=== PATIENT | female | born 1940 | race Two or more races ===

== ENCOUNTER → 2016-07-30 | Outpatient (CLI) | payer OTHER ==
[~2016-07-30] MED LIST: CRESTOR PO; FOLI1TAB15 PO; OMEP20CA10 PO
== END | disposition home or self-care (01) ==
LOC: RADPV 11:55
PROVIDERS: ATTEND Family Medicine
DX: M17.0 Bilateral primary osteoarthritis of knee (principal)

== ENCOUNTER → 2016-10-27 | Outpatient (CLI) | payer OTHER | END | disposition home or self-care (01) | LOC: RADPV 12:23 | PROVIDERS: ATTEND Internal Medicine Nephrology | DX: N18.3 Chronic kidney disease, stage 3 (moderate) (principal) | CPT/HCPCS: 76770 ==

== ENCOUNTER 2018-08-28 11:50 | Emergency (ER) | payer OTHER, MEDICAID ==
[~2018-08-28] VITALS: Ht 154.9 cm; Wt 68.2 kg
[2018-08-28 14:35] LABS: BASOPHILS % (AUTO) 0.3 % (0.0-2.0); EOSINOPHILS % (AUTO) 0.3 % (1.0-6.0); HEMATOCRIT 34.7 % (36-46); HEMOGLOBIN 11.1 g/dL (12.0-16.0); LYMPHOCYTES # (AUTO) 1.1 K/uL (1.0-4.8); LYMPHOCYTES % (AUTO) 8.9 % (22.0-44.0); MEAN CORPUSCULAR HEMOGLOBIN 24.5 pg (26.0-34.0); MEAN CORPUSCULAR HGB CONC 32.1 G/dL (31.0-37.0); MEAN CORPUSCULAR VOLUME 76 fL (80-100); MONOCYTES # (AUTO) 1.2 K/uL (0.1-1.0); MONOCYTES % (AUTO) 9.8 % (2.0-9.0); NEUTROPHILS # (AUTO) 9.8 K/uL (1.8-7.7); NEUTROPHILS % (AUTO) 80.7 % (40.0-70.0); PLATELET COUNT (AUTO) 280 K/uL (150-450); RED BLOOD CELL COUNT(AUTO) 4.54 MIL/uL (4.00-5.20); RED CELL DISTRIBUTION WIDTH 16.5 % (11.5-14.5)
[2018-08-28 14:44] LABS: ANION GAP 9 mmol/L (8-16); CALCIUM, TOTAL 9.7 mg/dL (8.8-10.5); CARBON DIOXIDE 27 mmol/L (22-29); CHLORIDE 101 mmol/L (98-107); CREATININE 0.84 mg/dL (0.60-1.30); GLUCOSE,RANDOM 103 mg/dL (70-110); POTASSIUM 4.6 mmol/L (3.5-5.1); SODIUM SERUM 137 mmol/L (136-145); UREA NITROGEN, BLOOD 8 mg/dL (7-18)
[2018-08-28 14:46] LABS: GLOMERULAR FILTR. RATE CALC > 60 mL/min (>60)
[2018-08-28 14:48] LABS: INR 0.9 (0.9-1.1); PROTHROMBIN TIME 9.6 SEC (9.4-11.6)
[2018-08-28 14:50] LABS: ALANINE AMINOTRANSFERASE 20 U/L (12-78); ALBUMIN 3.4 g/dL (3.4-5.0); ALKALINE PHOSPHATASE 74 U/L (46-116); ASPARTATE AMINOTRANSFERASE 15 U/L (15-37); BILIRUBIN,TOTAL 0.6 mg/dL (0.1-1.0); LIPASE 90 U/L (73-393); TOTAL PROTEIN, SERUM 7.6 g/dL (6.4-8.2)
[2018-08-28 15:47] LABS: APPEARANCE,URINE CLOUDY (CLEAR); BILIRUBIN,URINE NEGATIVE (NEGATIVE); GLUCOSE, URINE (UA) NEGATIVE (NEGATIVE); KETONES,URINE 15 mg/dL (NEGATIVE); LEUKOCYTE ESTERASE ,URINE SMALL (NEGATIVE); NITRATE,URINE NEGATIVE (NEGATIVE); OCCULT BLOOD,URINE NEGATIVE (NEGATIVE); PH,URINE 6.5 (5.0-8.0); PROTEIN,URINE NEGATIVE (NEGATIVE); UROBILINOGEN,URINE 0.2 mg/dL (<=1.0)
[2018-08-28 16:06] LABS: BACTERIA,URINE Few /HPF (None Seen); RBC,URINE 0-2 /HPF (0-2); SQUAMOUS EPITHELIAL CELL,UR Moderate /LPF (None Seen)
[2018-08-28 16:07] LABS: MUCUS,URINE Few LPF (None Seen)
[2018-08-28] MEDS ORDERED: SODIUM CHLORIDE 0.9% 100 ML ONE (16:16)
[2018-08-28] MEDS ORDERED: IOVERSOL 320 MG/ML 100 ML VIAL ONE (16:16)
[2018-08-28] MEDS ORDERED: LEVOFLOXACIN 500 MG/D5% WATER 100 ML IV ONE (19:30)
[2018-08-28] MEDS ORDERED: MetroNIDAZOLE 500 MG/NACL 100 ML IV ONE (19:30)
[2018-08-28] MEDS ORDERED: SODIUM CHLORIDE 0.9% 1,000 ML IV ONE (19:30)
[2018-08-28] MEDS ORDERED: ACETAMINOPHEN 325 MG TABLET PO ONE (20:00)
[2018-08-28] MEDS ORDERED: PB/HYOSCY/ATR/SCOP/LIDO/MAALOX 55 ML BOTTLE PO ONE (22:15)
[2018-08-28] MEDS ORDERED: ONDANSETRON HCL 4 MG/2 ML VIAL IVP ONE (22:15)
[2018-08-28] MEDS ORDERED: MORPHINE SULFATE 2 MG/ML SYRINGE IVP ONE (22:15)
[2018-08-29] VITALS: BP 119/59
== END 2018-08-29 | disposition short-term general hospital (02) ==
LOC: EMS 11:51
DX: K57.92 Diverticulitis of intestine, part unspecified, without perforation or abscess without bleeding (principal); E78.00 Pure hypercholesterolemia, unspecified; I10 Essential (primary) hypertension; Z79.899 Other long term (current) drug therapy
CPT/HCPCS: 36415; 71045; 74177; 80053; 81001; 83690; 84484; 85025; 85610; 85730; 87086; 93005; 96365; 96366; 96368; 96375; 99285; J1956; J2270; J2405; J3490; J7030; J7050; Q9967

== ENCOUNTER 2019-11-22 09:41 | Emergency (ER) | payer OTHER ==
[~2019-11-22] VITALS: Ht 154.9 cm; Wt 69.8 kg
[~2019-11-22 09:41] MED LIST changes: -OMEP20CA10 PO; +OMEP20CA12 PO
[2019-11-22] MEDS ORDERED: LOSA25TA71 PO (10:00)
[2019-11-22] MEDS ORDERED: OMEP20CA13 PO (10:00)
[2019-11-22] MEDS ORDERED: FLUT16H NASAL (10:00)
[2019-11-22] MEDS ORDERED: SIMV-46 PO (10:00)
[2019-11-22] MEDS: ONDANSETRON HCL 4 MG/2 ML VIAL IVP ONE (10:33)
[2019-11-22] MEDS: ACETAMINOPHEN 500 MG TABLET PO ONE (10:33)
[2019-11-22] MEDS: SODIUM CHLORIDE 0.9% 1,000 ML IV ONE (10:33)
[2019-11-22] MEDS ORDERED: ASPI-556 PO (11:09)
[2019-11-22 11:18] LABS: BASOPHILS % (AUTO) 0.3 % (0.0-2.0); EOSINOPHILS % (AUTO) 0.1 % (1.0-6.0); HEMATOCRIT 36.9 % (36-46); HEMOGLOBIN 12.1 g/dL (12.0-16.0); LYMPHOCYTES # (AUTO) 0.6 K/uL (1.0-4.8); LYMPHOCYTES % (AUTO) 5.8 % (22.0-44.0); MEAN CORPUSCULAR HEMOGLOBIN 27.1 pg (26.0-34.0); MEAN CORPUSCULAR HGB CONC 32.9 G/dL (31.0-37.0); MEAN CORPUSCULAR VOLUME 83 fL (80-100); MONOCYTES # (AUTO) 0.9 K/uL (0.1-1.0); MONOCYTES % (AUTO) 8.1 % (2.0-9.0); NEUTROPHILS # (AUTO) 9.4 K/uL (1.8-7.7); PLATELET COUNT (AUTO) 203 K/uL (150-450); RED BLOOD CELL COUNT(AUTO) 4.48 MIL/uL (4.00-5.20); RED CELL DISTRIBUTION WIDTH 14.4 % (11.5-14.5)
[2019-11-22 11:20] LABS: NEUTROPHILS % (AUTO) 85.7 % (40.0-70.0)
[2019-11-22 11:33] LABS: ANION GAP 8 mmol/L (8-16); CALCIUM, TOTAL 8.8 mg/dL (8.8-10.5); CARBON DIOXIDE 24 mmol/L (22-29); CHLORIDE 105 mmol/L (98-107); D-DIMER 3.04 mg/L FEU (0.00-0.50); GLOMERULAR FILTR. RATE CALC 53 mL/min (>60); GLUCOSE,RANDOM 109 mg/dL (70-110); POTASSIUM 4.6 mmol/L (3.5-5.1); PROTHROMBIN TIME 10.3 SEC (9.4-11.6); SODIUM SERUM 137 mmol/L (136-145); UREA NITROGEN, BLOOD 8 mg/dL (7-18)
[2019-11-22 11:41] LABS: LACTIC ACID 1.9 mmol/L (0.4-2.0)
[2019-11-22 11:51] LABS: ALANINE AMINOTRANSFERASE 28 U/L (12-78); ALBUMIN 3.2 g/dL (3.4-5.0); ALKALINE PHOSPHATASE 76 U/L (46-116); ASPARTATE AMINOTRANSFERASE 24 U/L (15-37); BILIRUBIN,TOTAL 0.4 mg/dL (0.1-1.0); CREATINE KINASE, TOTAL ONLY 27 U/L (26-192); FERRITIN 21 ng/mL (8-252); LACTATE DEHYDROGENASE 143 U/L (81-234); LIPASE 204 U/L (73-393); PHOSPHORUS 3.3 mg/dL (2.5-4.9); TOTAL PROTEIN, SERUM 6.8 g/dL (6.4-8.2)
[2019-11-22 12:45] LABS: ERYTHROCYTE SEDIMENTATION RATE 44 MM/HR (0-20)
[2019-11-22 12:48] LABS: APPEARANCE,URINE CLEAR (CLEAR); BILIRUBIN,URINE NEGATIVE (NEGATIVE); GLUCOSE, URINE (UA) NEGATIVE (NEGATIVE); KETONES,URINE NEGATIVE (NEGATIVE); LEUKOCYTE ESTERASE ,URINE TRACE (NEGATIVE); NITRATE,URINE NEGATIVE (NEGATIVE); OCCULT BLOOD,URINE NEGATIVE (NEGATIVE); PROTEIN,URINE NEGATIVE (NEGATIVE); UROBILINOGEN,URINE 0.2 mg/dL (<=1.0)
[2019-11-22 12:57] LABS: BACTERIA,URINE None Seen /HPF (None Seen); RBC,URINE None Seen /HPF (0-2); WBC,URINE 0-2 /HPF (0-5)
[2019-11-22 13:28] VITALS: BP 104/68
== END 2019-11-22 13:54 | disposition home or self-care (01) ==
LOC: EMS 09:43
DX: R11.2 Nausea with vomiting, unspecified (principal); R19.7 Diarrhea, unspecified; R10.84 Generalized abdominal pain; R50.9 Fever, unspecified; K21.9 Gastro-esophageal reflux disease without esophagitis; E78.00 Pure hypercholesterolemia, unspecified; I10 Essential (primary) hypertension; Z20.828 Contact with and (suspected) exposure to other viral communicable diseases
CPT/HCPCS: 36415; 71045; 71250; 74176; 80053; 81001; 82550; 82728; 83605; 83615; 83690; 83735; 84100; 84145; 84484; 85025; 85379; 85610; 85651; 85730; 87040; 93005; 96361; 96374; 99285; J2405; J7030; U0003; 51701; 72192; 74150

== ENCOUNTER 2022-02-05 00:53 | Emergency (ER) | payer OTHER ==
[~2022-02-05] VITALS: Ht 154.9 cm; Wt 73.3 kg
[~2022-02-05 00:53] MED LIST changes: +ASPI-556 PO; -CRESTOR PO; +FLUT16H NASAL; +LOSA-381 PO; +OMEP20CA13 PO; +SIMV-46 PO
[2022-02-05] MEDS ORDERED: SODIUM CHLORIDE 0.9% 1,000 ML IV ONE (01:15)
[2022-02-05 01:36] LABS: COVID AG,FIA SOURCE NASAL SWAB
[2022-02-05 01:39] LABS: BASOPHILS % (AUTO) 0.4 % (0.0-2.0); EOSINOPHILS % (AUTO) 2.4 % (1.0-6.0); HEMATOCRIT 33.4 % (36-46); HEMOGLOBIN 11.1 g/dL (12.0-16.0); LYMPHOCYTES # (AUTO) 0.8 K/uL (1.0-4.8); LYMPHOCYTES % (AUTO) 9.9 % (22.0-44.0); MEAN CORPUSCULAR HEMOGLOBIN 26.5 pg (26.0-34.0); MEAN CORPUSCULAR HGB CONC 33.4 G/dL (31.0-37.0); MEAN CORPUSCULAR VOLUME 79 fL (80-100); MONOCYTES # (AUTO) 0.7 K/uL (0.1-1.0); MONOCYTES % (AUTO) 9.1 % (2.0-9.0); NEUTROPHILS # (AUTO) 6.2 K/uL (1.8-7.7); NEUTROPHILS % (AUTO) 78.2 % (40.0-70.0); PLATELET COUNT (AUTO) 232 K/uL (150-450); RED CELL DISTRIBUTION WIDTH 15.5 % (11.5-14.5)
[2022-02-05] MEDS ORDERED: PB/HYOSCY/ATR/SCOP/LIDO/MAALOX 55 ML BOTTLE PO ONE (02:00)
[2022-02-05] MEDS ORDERED: ACETAMINOPHEN 500 MG TABLET PO ONE (02:00)
[2022-02-05 02:16] LABS: INFLUENZA TYPE A NEGATIVE FOR TYPE A (NEGATIVE); INFLUENZA TYPE B NEGATIVE FOR TYPE B (NEGATIVE)
[2022-02-05 02:17] LABS: CALCIUM, TOTAL 8.9 mg/dL (8.8-10.5); CREATININE 0.97 mg/dL (0.60-1.30); POTASSIUM 4.2 mmol/L (3.5-5.1)
[2022-02-05 02:23] LABS: ALBUMIN 3.3 g/dL (3.4-5.0); BILIRUBIN,TOTAL 0.3 mg/dL (0.1-1.0); TOTAL PROTEIN, SERUM 6.7 g/dL (6.4-8.2)
[2022-02-05] MEDS ORDERED: ONDANSETRON HCL 4 MG/2 ML VIAL IVP ONE (05:15)
[2022-02-05 05:16] LABS: APPEARANCE,URINE CLEAR (CLEAR); BILIRUBIN,URINE NEGATIVE (NEGATIVE); GLUCOSE, URINE (UA) NEGATIVE (NEGATIVE); KETONES,URINE NEGATIVE (NEGATIVE); LEUKOCYTE ESTERASE ,URINE MODERATE (NEGATIVE); NITRATE,URINE NEGATIVE (NEGATIVE); OCCULT BLOOD,URINE NEGATIVE (NEGATIVE); PH,URINE 7.5 (5.0-8.0); PROTEIN,URINE NEGATIVE (NEGATIVE); SPECIFIC GRAVITIY, URINE 1.013 (1.003-1.030); UROBILINOGEN,URINE <=1.0 mg/dL (<=1.0)
[2022-02-05 05:28] LABS: BACTERIA,URINE None Seen /HPF (None Seen); RBC,URINE 0-2 /HPF (0-2); SQUAMOUS EPITHELIAL CELL,UR Few /LPF (None Seen)
[2022-02-05 07:46] VITALS: BP 145/63
== END 2022-02-05 08:12 | disposition home or self-care (01) ==
LOC: EMS 00:54
DX: R10.13 Epigastric pain (principal); R11.2 Nausea with vomiting, unspecified; E78.00 Pure hypercholesterolemia, unspecified; I10 Essential (primary) hypertension; Z87.19 Personal history of other diseases of the digestive system; Z87.898 Personal history of other specified conditions; Z20.822 Contact with and (suspected) exposure to COVID-19
CPT/HCPCS: 99285; 71250; 96374; 96361; 87426; 80053; 81001; 83690; 84484; 85025; 87804; 36415; 74022; 74176; 93005; J2405; J7030; 72192; 74150

== ENCOUNTER 2022-04-19 01:24 | Emergency (ER) | payer OTHER ==
[~2022-04-19] VITALS: Ht 154.9 cm; Wt 71.5 kg
[~2022-04-19 01:24] MED LIST changes: -FLUT16H NASAL; +FLUT16SP NASAL
[2022-04-19] MEDS ORDERED: ONDANSETRON HCL 4 MG/2 ML VIAL IVP ONE (02:00)
[2022-04-19] MEDS ORDERED: SODIUM CHLORIDE 0.9% 1,000 ML IV ONE (02:00)
[2022-04-19 02:01] LABS: BASOPHILS % (AUTO) 0.4 % (0.0-2.0); EOSINOPHILS % (AUTO) 1.3 % (1.0-6.0); HEMATOCRIT 36.3 % (36-46); HEMOGLOBIN 11.7 g/dL (12.0-16.0); LYMPHOCYTES # (AUTO) 0.9 K/uL (1.0-4.8); LYMPHOCYTES % (AUTO) 9.8 % (22.0-44.0); MEAN CORPUSCULAR HEMOGLOBIN 26.2 pg (26.0-34.0); MEAN CORPUSCULAR HGB CONC 32.3 G/dL (31.0-37.0); MEAN CORPUSCULAR VOLUME 81 fL (80-100); MONOCYTES # (AUTO) 0.7 K/uL (0.1-1.0); NEUTROPHILS # (AUTO) 7.7 K/uL (1.8-7.7); NEUTROPHILS % (AUTO) 81.5 % (40.0-70.0); PLATELET COUNT (AUTO) 262 K/uL (150-450); RED BLOOD CELL COUNT(AUTO) 4.48 MIL/uL (4.00-5.20)
[2022-04-19 02:14] LABS: INR 0.9 (0.9-1.1)
[2022-04-19 02:18] LABS: CALCIUM, TOTAL 8.9 mg/dL (8.8-10.5); CREATININE 0.9 mg/dL (0.60-1.30); POTASSIUM 3.7 mmol/L (3.5-5.1)
[2022-04-19 02:23] LABS: ALBUMIN 3.4 g/dL (3.4-5.0); BILIRUBIN,TOTAL 0.3 mg/dL (0.1-1.0); TOTAL PROTEIN, SERUM 7.1 g/dL (6.4-8.2)
[2022-04-19 03:00] LABS: COVID AG,FIA SOURCE NASAL SWAB
[2022-04-19] MEDS ORDERED: ACETAMINOPHEN 500 MG TABLET PO ONE (03:00)
[2022-04-19 03:38] LABS: INFLUENZA TYPE A NEGATIVE FOR TYPE A (NEGATIVE); INFLUENZA TYPE B NEGATIVE FOR TYPE B (NEGATIVE)
[2022-04-19 06:09] VITALS: BP 132/60
[2022-04-19] MEDS ORDERED: ONDA-104 PO (06:27)
== END 2022-04-19 07:12 | disposition home or self-care (01) ==
LOC: EMS 01:26
DX: R11.2 Nausea with vomiting, unspecified (principal); E78.00 Pure hypercholesterolemia, unspecified; R19.7 Diarrhea, unspecified; I10 Essential (primary) hypertension; Z20.822 Contact with and (suspected) exposure to COVID-19
CPT/HCPCS: 99285; 96374; 96361; 87426; 80053; 83690; 85025; 85610; 85730; 87804; 36415; 93005; J2405; J7030

== ENCOUNTER → 2025-03-02 | Emergency (ER) | payer OTHER ==
[~2025-03-02] VITALS: Ht 157.5 cm; Wt 56.0 kg
[~2025-03-02] MED LIST changes: +0.9% SODIUM CHLORIDE 10 ML SYRINGE IVP PRN; +METO25 PO; +OLOP2.5D16 OU; +ONDA-104 PO; +PROP10DR15 OU; +SIMV-43 PO
[2025-03-02 18:19] LABS: PLATELET COUNT (AUTO) 250 K/uL (150-450); RED BLOOD CELL COUNT(AUTO) 4.74 MIL/uL (4.00-5.20); RED CELL DISTRIBUTION WIDTH 15.2 % (11.5-14.5); WHITE BLOOD COUNT (AUTO) 9.9 K/uL (4.5-11.0)
[2025-03-02 18:30] LABS: RBC MORPHOLOGY COMMENT NORMAL RBC MORPH
[2025-03-02 18:39] LABS: CALCIUM, TOTAL 9.4 mg/dL (8.8-10.5); CREATININE 0.75 mg/dL (0.60-1.30); GLOMERULAR FILTR. RATE CALC > 60 mL/min (>60); GLUCOSE,RANDOM 120 mg/dL (70-110); SODIUM SERUM 139 mmol/L (136-145); UREA NITROGEN, BLOOD 12 mg/dL (7-18)
[2025-03-02 18:49] LABS: LACTIC ACID 1.1 mmol/L (0.4-2.0); TROPONIN I-HIGH SENSITIVITY 5 ng/L (<51)
[2025-03-02] MEDS: KETOROLAC TROMETHAMINE 30 MG/ML VIAL IVP ONE (19:25)
[2025-03-02] MEDS: SODIUM CHLORIDE 0.9% 1,700 ML IV ONE (19:25)
[2025-03-02] MEDS: ACETAMINOPHEN 500 MG TABLET PO ONE (19:26)
[2025-03-02] MEDS: ONDANSETRON HCL 4 MG/2 ML VIAL IVP ONE (19:26)
[2025-03-02] MEDS: CefTRIAXone 1 GM/DEXTROSE 50 ML IV ONE (19:58)
[2025-03-02 21:00] VITALS: BP 130/51; PULSE 76; RESP 16; TEMP 98; O2SAT 95
== END | disposition short-term general hospital (02) ==
LOC: EMS 17:20
DX: K52.9 Noninfective gastroenteritis and colitis, unspecified (principal); A41.9 Sepsis, unspecified organism; I10 Essential (primary) hypertension; E78.00 Pure hypercholesterolemia, unspecified; R53.1 Weakness; R06.02 Shortness of breath; R42 Dizziness and giddiness; Z87.19 Personal history of other diseases of the digestive system; Z79.899 Other long term (current) drug therapy
CPT/HCPCS: 99285; 96365; 96375; 71045; 80048; 83605; 83690; 83880; 84484; 85025; 85610; 87040; 36415; 93005; 84145; J1885; J0696; J2405; J7030